=== PATIENT | female | born 2000 | race Hispanic/Latino ===

== ENCOUNTER 2023-02-27 14:16 | Inpatient (IN) | payer OTHER, BC ==
[2023-02-27] MEDS ORDERED: Morphine 4 MG/ML VIAL ONE (15:19)
[2023-02-27] MEDS ORDERED: Ipratropium/Albuterol 3 ML NEB NEB PRN (15:53)
[2023-02-27] MEDS ORDERED: Ondansetron PF 4 MG/2 ML Vial IVP PRN (15:53)
[2023-02-27] MEDS ORDERED: Morphine 2 MG/ML VIAL SLOW IVP PRN (15:53)
[2023-02-27] MEDS ORDERED: traMADol HCl 50 MG TAB PO PRN (15:57)
[2023-02-27] MEDS ORDERED: Cyclobenzaprine 10 MG TAB PO PRN (15:57)
[2023-02-27] MEDS ORDERED: Ibuprofen 600 MG TAB PO SCH (16:00)
[2023-02-27 16:09] LABS: #Basophils 0.1 thou/uL (0.0-0.2); #Eosinphils 0.2 thou/uL (0.0-0.7); #Monocytes 0.9 thou/uL (0.11-0.59); #Neutrophils 11.5 thou/uL (1.40-6.50); %Basophils 0.4 % (0.0-1.0); %Lymphocytes 14.9 % (21.0-51.0); %Monocytes 6.1 % (0.0-10.0); %Neutrophils 77.3 % (42.0-75.0); Hematocrit 42.2 % (36.0-47.0); Hemoglobin 13.5 g/dL (12.0-16.0); Mean Corpuscular Volume 87.4 fl (78.0-98.0); Mean Platelet Volume 10.5 fL (7.4-10.4); Platelet Count 302 10x3/uL (130-400); RBC Distribution Width 12.2 % (11.5-14.5); Red Blood Cell (RBC) Count 4.83 mill/uL (4.20-5.40); White Blood Cell (WBC) Count 14.9 10x3/uL (4.8-10.8)
[2023-02-27] MEDS ORDERED: Acetaminophen 500 MG TAB PO SCH (16:15)
[2023-02-27 16:19] LABS: BHCG - Serum Negative (NEGATIVE); Pregs Control Background? CLEAR/WHITE (CLR/WHITE); Pregs Control Bar Appear? YES (CONTROL BAR)
[2023-02-27 16:31] LABS: ALT (SGPT) 44 U/L (8-55); AST (SGOT) 35 U/L (5-34); Albumin 5.2 g/dL (3.5-5.0); Alkaline Phosphatase 99 U/L (40-110); Anion Gap 14 mmol/L (10-20); BUN (Urea Nitrogen) 8 mg/dL (7.0-18.7); Bilirubin, Total Less than 0.2 mg/dL (0.2-1.2); Calc. Creatinine Clearance 0 mL/min (70-130); Calcium 9.8 mg/dL (7.8-10.44); Carbon Dioxide 25 mmol/L (22-29); Chloride 104 mmol/L (98-107); Estimated GFR 112; Globulin 3.3 g/dL (2.4-3.5); Glucose 97 mg/dL (70-105); Potassium 3.9 mmol/L (3.5-5.1); Protein, Total 8.5 g/dL (6.0-8.3); Sodium 139 mmol/L (136-145)
[2023-02-27] MEDS: Acetaminophen 500 MG TAB PO SCH (18:01)
[2023-02-27] MEDS: traMADol HCl 50 MG TAB PO SCH (18:01)
[2023-02-27] MEDS: Sodium Chloride 0.9% 1,000 ML IV SCH (18:03)
[2023-02-27] MEDS ORDERED: Bacitracin Zinc Ointment 30 gm TUBE TOP PRN ×2 (18:55→19:15)
[2023-02-27] MEDS ORDERED: Lorazepam 2 MG/ML VIAL SLOW IVP PRN (18:56)
[2023-02-27 19:05] VITALS: BMI 31.4
[2023-02-27] MEDS ORDERED: FLU VACC QS2023-24(6MOS UP)/PF 60 MCG/0.5 ML SYRINGE IM ONE (19:15)
[2023-02-27] MEDS: Famotidine/PF 20 mg/2ml Vial SLOW IVP SCH (20:54)
[2023-02-27] MEDS: Ibuprofen 600 MG TAB PO SCH (20:54)
[2023-02-27] MEDS: Gabapentin 300 MG CAP PO SCH (20:55)
[2023-02-27] MEDS: Senokot S 8.6-50 MG TAB PO SCH (20:56)
[2023-02-28] MEDS: Sodium Chloride 0.9% 1,000 ML IV SCH ×2 (00:26→09:17)
[2023-02-28] MEDS: traMADol HCl 50 MG TAB PO SCH ×6 (00:27→23:15)
[2023-02-28] MEDS: Acetaminophen 500 MG TAB PO SCH ×6 (00:28→23:15)
[2023-02-28] MEDS: Ibuprofen 600 MG TAB PO SCH (05:01)
[2023-02-28 05:47] LABS: #Eosinphils 0.2 thou/uL (0.0-0.7); #Monocytes 1.2 thou/uL (0.11-0.59); #Neutrophils 7.3 thou/uL (1.40-6.50); %Basophils 0.3 % (0.0-1.0); %Eosinophils 1.4 % (0.0-10.0); %Lymphocytes 28.4 % (21.0-51.0); %Monocytes 9.5 % (0.0-10.0); %Neutrophils 60.1 % (42.0-75.0); Mean Corpuscular HGB CONC 31.3 g/dL (32.0-36.0); Mean Corpuscular Hemoglobin 27.5 pg (27.0-31.0); Mean Platelet Volume 11.1 fL (7.4-10.4); Platelet Count 228 10x3/uL (130-400); RBC Distribution Width 12.4 % (11.5-14.5); Red Blood Cell (RBC) Count 3.49 mill/uL (4.20-5.40); White Blood Cell (WBC) Count 12.2 10x3/uL (4.8-10.8)
[2023-02-28 05:52] LABS: Hematocrit 30.7 % (36.0-47.0); Hemoglobin 9.6 g/dL (12.0-16.0)
[2023-02-28 05:55] LABS: INR-International Normal Ratio 1.1; Prothrombin Time 14.2 sec (12.0-14.7)
[2023-02-28 06:13] LABS: Anion Gap 9 mmol/L (10-20); BUN (Urea Nitrogen) 7 mg/dL (7.0-18.7); Calc. Creatinine Clearance 181 mL/min (70-130); Calcium 8.5 mg/dL (7.8-10.44); Carbon Dioxide 25 mmol/L (22-29); Chloride 105 mmol/L (98-107); Estimated GFR 126; Glucose 104 mg/dL (70-105); Potassium 3.9 mmol/L (3.5-5.1); Sodium 135 mmol/L (136-145)
[2023-02-28] MEDS ORDERED: Escitalopram Oxalate 10 mg Tablet PO SCH (09:00)
[2023-02-28] MEDS: Escitalopram Oxalate 10 mg Tablet PO SCH (09:15)
[2023-02-28] MEDS: Famotidine/PF 20 mg/2ml Vial SLOW IVP SCH ×2 (09:15→20:06)
[2023-02-28] MEDS: Gabapentin 300 MG CAP PO SCH ×3 (09:15→20:05)
[2023-02-28] MEDS: Bacitracin Zinc Ointment 30 gm TUBE TOP SCH (09:19)
[2023-02-28] MEDS: Polyethylene Glycol 3350 17 GM Packet PO SCH (09:26)
[2023-02-28] MEDS: Senokot S 8.6-50 MG TAB PO SCH ×2 (09:26→21:39)
[2023-02-28] MEDS ORDERED: CEFAZOLIN 2 GM in Sodium Chloride 0.9% 100 ML IVPB SCH (13:00)
[2023-02-28] MEDS ORDERED: Fentanyl 250 MCG/5 ML VIAL ONE (13:58)
[2023-02-28] MEDS ORDERED: Dexamethasone 4 mg/ml Vial ONE (14:16)
[2023-02-28] MEDS ORDERED: Bupivacaine PF 0.5% 30 ML VIAL ONE (14:16)
[2023-02-28] MEDS ORDERED: Midazolam HCl 2 mg/2 ml Vial ONE (14:19)
[2023-02-28] MEDS: Ibuprofen 200 MG TAB PO SCH ×2 (14:55→23:18)
[2023-02-28] MEDS ORDERED: fentaNYL 50 mcg/mL 1 mL Vial ONE ×4 (15:05→18:53)
[2023-02-28] MEDS ORDERED: Famotidine/PF 20 mg/2ml Vial ONE (15:05)
[2023-02-28] MEDS ORDERED: Meperidine HCl/PF 25 MG/ML VIAL ONE (15:05)
[2023-02-28] MEDS ORDERED: Sodium Chloride 0.9% 100 ML ONE (15:11)
[2023-02-28] MEDS ORDERED: CEFAZOLIN 2 GM VIAL ONE (15:11)
[2023-02-28] MEDS ORDERED: Lidocaine 1% PF 5 ML VIAL ONE (15:31)
[2023-02-28] MEDS ORDERED: Dexamethasone 20 MG/5 ML VIAL ONE (15:31)
[2023-02-28] MEDS ORDERED: PROPOFOL 200 MG/20 ML VIAL ONE (15:31)
[2023-02-28] MEDS ORDERED: Metoclopramide HCl 10 MG/2 ML VIAL ONE (15:31)
[2023-02-28] MEDS ORDERED: Bupivacaine HCl 0.5%/Epinephrine 1:200,000/PF 30 ml Vial ONE (18:00)
[2023-02-28] MEDS ORDERED: Ondansetron HCl/PF 4 MG/2 ML Vial IVP PRN (18:12)
[2023-02-28] MEDS ORDERED: Promethazine HCl 25 MG/ML VIAL IM PRN (18:12)
[2023-02-28] MEDS: Ferrous Sulfate 325 MG TAB PO SCH (18:20)
[2023-02-28] MEDS: Ascorbic Acid 500 mg Chewable Tablet PO SCH (20:05)
[2023-02-28] MEDS: CEFAZOLIN 2 GM in Sodium Chloride 0.9% 100 ML IVPB SCH (23:14)
[2023-03-01 05:15] LABS: #Monocytes 0.4 thou/uL (0.11-0.59); #Neutrophils 11.3 thou/uL (1.40-6.50); %Basophils 0.1 % (0.0-1.0); %Lymphocytes 6.9 % (21.0-51.0); %Monocytes 3.3 % (0.0-10.0); %Neutrophils 89.1 % (42.0-75.0); Hematocrit 29.4 % (36.0-47.0); Hemoglobin 9.4 g/dL (12.0-16.0); Mean Corpuscular Hemoglobin 28.6 pg (27.0-31.0); Mean Corpuscular Volume 89.4 fl (78.0-98.0); Platelet Count 209 10x3/uL (130-400); RBC Distribution Width 12.2 % (11.5-14.5); Red Blood Cell (RBC) Count 3.29 mill/uL (4.20-5.40); White Blood Cell (WBC) Count 12.6 10x3/uL (4.8-10.8)
[2023-03-01] MEDS: Acetaminophen 500 MG TAB PO SCH ×4 (05:45→21:57)
[2023-03-01] MEDS: Ibuprofen 200 MG TAB PO SCH ×3 (05:49→21:56)
[2023-03-01] MEDS: traMADol HCl 50 MG TAB PO SCH ×4 (05:50→21:55)
[2023-03-01] MEDS: CEFAZOLIN 2 GM in Sodium Chloride 0.9% 100 ML IVPB SCH ×2 (05:50→15:06)
[2023-03-01] MEDS: Gabapentin 300 MG CAP PO SCH ×3 (09:00→21:57)
[2023-03-01] MEDS: Polyethylene Glycol 3350 17 GM Packet PO SCH (09:00)
[2023-03-01] MEDS: Senokot S 8.6-50 MG TAB PO SCH ×2 (09:00→21:54)
[2023-03-01] MEDS: Escitalopram Oxalate 10 mg Tablet PO SCH (09:00)
[2023-03-01] MEDS: Famotidine/PF 20 mg/2ml Vial SLOW IVP SCH ×2 (09:01→21:57)
[2023-03-01] MEDS: Ferrous Sulfate 325 MG TAB PO SCH ×2 (09:01→18:10)
[2023-03-01] MEDS: Ascorbic Acid 500 mg Chewable Tablet PO SCH ×2 (09:01→21:57)
[2023-03-01] MEDS: Bacitracin Zinc Ointment 30 gm TUBE TOP SCH (11:23)
[2023-03-02 04:31] VITALS: TEMP 98.3
[2023-03-02 05:39] LABS: #Eosinphils 0.1 thou/uL (0.0-0.7); #Monocytes 0.8 thou/uL (0.11-0.59); #Neutrophils 6.5 thou/uL (1.40-6.50); %Basophils 0.4 % (0.0-1.0); %Eosinophils 0.4 % (0.0-10.0); %Lymphocytes 34.8 % (21.0-51.0); %Monocytes 7.3 % (0.0-10.0); %Neutrophils 56.7 % (42.0-75.0); Hematocrit 25.4 % (36.0-47.0); Mean Corpuscular HGB CONC 31.5 g/dL (32.0-36.0); Mean Corpuscular Hemoglobin 28.7 pg (27.0-31.0); Platelet Count 188 10x3/uL (130-400); RBC Distribution Width 12.6 % (11.5-14.5); Red Blood Cell (RBC) Count 2.79 mill/uL (4.20-5.40); White Blood Cell (WBC) Count 11.4 10x3/uL (4.8-10.8)
[2023-03-02] MEDS: Ibuprofen 200 MG TAB PO SCH (05:51)
[2023-03-02] MEDS: Acetaminophen 500 MG TAB PO SCH ×2 (05:52→13:03)
[2023-03-02] MEDS: traMADol HCl 50 MG TAB PO SCH ×2 (05:52→13:04)
[2023-03-02] MEDS: Senokot S 8.6-50 MG TAB PO SCH (09:34)
[2023-03-02] MEDS: Ferrous Sulfate 325 MG TAB PO SCH (09:34)
[2023-03-02] MEDS: Ascorbic Acid 500 mg Chewable Tablet PO SCH (09:35)
[2023-03-02] MEDS: Gabapentin 300 MG CAP PO SCH (09:35)
[2023-03-02] MEDS: Polyethylene Glycol 3350 17 GM Packet PO SCH (09:35)
[2023-03-02] MEDS: Escitalopram Oxalate 10 mg Tablet PO SCH (09:35)
[2023-03-02] MEDS: Famotidine/PF 20 mg/2ml Vial SLOW IVP SCH ×2 (09:35→09:47)
[2023-03-02] MEDS: Bacitracin Zinc Ointment 30 gm TUBE TOP SCH (10:39)
[2023-03-02 11:41] VITALS: BP 107/70
== END 2023-03-02 14:25 | disposition home or self-care (01) | DRG 493 ==
LOC: ERS 14:16 → SURG A 15:53
PROVIDERS: ADMIT Surgery; ATTEND Surgery
PROC: 0QSH04Z Reposition Left Tibia with Internal Fixation Device, Open Approach (ICD-10-PCS; principal; 2023-02-28)
DX: S82.142A Displaced bicondylar fracture of left tibia, initial encounter for closed fracture (principal); D62 Acute posthemorrhagic anemia; F41.9 Anxiety disorder, unspecified; Z79.899 Other long term (current) drug therapy; F32.A Depression, unspecified; V20.4 Motorcycle driver injured in collision with pedestrian or animal in traffic accident
CPT/HCPCS: 36415; 71045; 80048; 80053; 84703; 85025; 85610; 85730; 96360; 96372; C1713; G0390; J1100; J1650; J2175; J2250; J2270; J2405; J2704; J2765; J3010; J3490; J7050; S0020; S0028